=== PATIENT | male | born 1975 | race African-American/Black ===

== ENCOUNTER 2018-06-27 13:39 | Emergency (ER) | payer MEDICAID ==
[~2018-06-27] VITALS: Ht 185.4 cm; Wt 87.6 kg
[2018-06-27 13:44] VITALS: BP 112/72
== END 2018-06-27 15:11 | disposition left against medical advice (07) ==
LOC: ER 13:39
DX: K04.7 Periapical abscess without sinus (principal); Z53.21 Procedure and treatment not carried out due to patient leaving prior to being seen by health care provider